=== PATIENT | female | born 1995 | race Caucasian/White ===

== ENCOUNTER → 2017-11-17 | Outpatient (REF) | payer OTHER ==
[2017-11-17 19:28] LABS: PLATELET COUNT, AUTOMATED 280 K/uL (150-450)
== END ==
PROVIDERS: ATTEND Nurse Practitioner Family
DX: R07.9 Chest pain, unspecified (principal)
CPT/HCPCS: 82040; 82247; 82310; 82374; 82435; 82565; 82947; 84075; 84132; 84155; 84295; 84450; 84460; 84484; 84520; 85025

== ENCOUNTER 2018-01-22 11:39 | Emergency (ER) | payer OTHER ==
--- NOTE | 2018-01-22 11:47 | ER Report ---
History and Physical Time Seen By MD: 11:46 Hx. of Stated Complaint: PT WOKE UP WITH CP AT 0635 THIS MORNING. IT STARTED LAST NIGHT BUT SHE WENT TO BED TO SLEEP ITY OFF. WENT TO URGENT TODAY, THEY SENT HER TO ER WITH LEAD CHANGES ON EKG HPI/ROS CHIEF COMPLAINT: Chest pain and shortness of breath HISTORY OF PRESENT ILLNESS: This is a 23-year-old female who presents to the emergency department for chest pain and shortness of breath. The patient was seen and evaluated at urgent care in November for some chest pain, exertional- type while running, EKG then showing a normal sinus rhythm. Was told that this was more muscular than cardiac, patient states that she been having this pain intermittently since then, significantly more intense since last Monday when she was running she had severe chest pain. Today she woke up around 6:30 with significant increase in chest pain, did seem to cause some increased shortness of breath. This pain did start last night but did intensify throughout the morning today. Patient did go running yesterday. Patient also does smoke arch quantities of marijuana, she states that when she does this she inhales pretty forcefully and deeply. Patient then went to urgent care today, they did a repeat EKG and there were some notable EKG changes, specifically V2, V3, with inverted T waves in lead 1 and flattened the T waves in lead 2. No nausea or vomiting. No headaches. No other complaints. REVIEW OF SYSTEMS: Constitutional: No fever, no chills. Eyes: No discharge. ENT: No sore throat. Cardiovascular: As above. Respiratory: As above. Gastrointestinal: No abdominal pain, no vomiting. Genitourinary: No hematuria. Musculoskeletal: No back pain. Skin: No rashes. Neurological: No headache. Allergies: Coded Allergies: No Known Drug Allergies (Unverified , 01/22/18) Home Meds No Active Prescriptions or Reported Meds Past Medical/Surgical History The patient has a past medical and surgical history of significant amount of marijuana use, tonsillectomy. Reviewed Nurses Notes: Yes Constitutional Vital Sign - Last 24 Hours 01/22/18 01/22/18 01/22/18 01/22/18 11:39 11:42 11:42 11:54 Temp 97.8 Pulse ??? 80 103 Resp 12 23 B/P (MAP) 142/96 142/96 (111) Pulse Ox 97 99 O2 Delivery Room Air 01/22/18 01/22/18 01/22/18 01/22/18 12:00 12:09 12:24 12:30 Pulse 79 81 Resp 35 22 B/P (MAP) 122/86 (98) 130/111 (117) Pulse Ox 98 98 Physical Exam General Appearance: The patient is alert, has no immediate need for airway protection and no signs of toxicity. Eyes: Pupils equal and round no pallor or injection. ENT, Mouth: Mucous membranes are moist. Respiratory: There are no retractions, lungs are clear to auscultation. Cardiovascular: Regular rate and rhythm, no murmurs, clicks or rubs. Gastrointestinal: Abdomen is soft and non tender, no masses, bowel sounds nor mal. Neurological: Alert and oriented 4. Moving all extremities. Following all commands. No focal neuro deficits. Skin: Warm and dry, no rashes. Musculoskeletal: Neck is supple non tender. Extremities are nontender, nonswollen and have full range of motion. DIFFERENTIAL DIAGNOSIS: After history and physical exam differential diagnosis was considered for chest pain including but not limited to myocardial ischemia, pericarditis pulmonary embolus, chest wall pain, pleural inflammation and pulmonary infectious causes. Medical Decision Making Data Points Result Diagram: 01/22/18 1153 01/22/18 1153 Laboratory Hematology Test 01/22/18 11:53 Red Blood Count 5.18 M/uL (4.17-5.56) Mean Corpuscular Volume 89.1 fL (80.0-96.0) Mean Corpuscular Hemoglobin 30.6 pg (26.0-33.0) Mean Corpuscular Hemoglobin Concent 34.3 g/dL (32.0-36.0) Red Cell Distribution Width 13.1 % (11.5-14.5) Mean Platelet Volume 7.2 fL (7.2-11.1) Neutrophils (%) (Auto) 67.0 % (39.4-72.5) Lymphocytes (%) (Auto) 26.6 % (17.6-49.6) Monocytes (%) (Auto) 5.4 % (4.1-12.4) Eosinophils (%) (Auto) 0.4 % (0.4-6.7) Basophils (%) (Auto) 0.6 % (0.3-1.4) Nucleated RBC Relative Count (auto) 0.0 /100WBC Neutrophils # (Auto) 4.8 K/uL (2.0-7.4) Lymphocytes # (Auto) 1.9 K/uL (1.3-3.6) Monocytes # (Auto) 0.4 K/uL (0.3-1.0) Eosinophils # (Auto) 0.0 K/uL (0.0-0.5) Basophils # (Auto) 0.0 K/uL (0.0-0.1) Nucleated RBC Absolute Count (auto) 0.00 K/uL D-Dimer Quantitative (PE/DVT) 0.28 ug/ml (0-0.50) Sodium Level 140 mmol/L (137-145) Potassium Level 3.7 mmol/L (3.5-5.0) Chloride Level 107 mmol/L (98-107) Carbon Dioxide Level 21 mmol/L (22-31) Blood Urea Nitrogen 10 mg/dl (7-18) Creatinine 0.70 mg/dl (0.52-1.04) Glomerular Filtration Rate Calc > 60.0 Random Glucose 112 mg/dl (75-110) Calcium Level 9.7 mg/dl (8.4-10.2) Total Bilirubin 1.1 mg/dl (0.2-1.3) Aspartate Amino Transf (AST/SGOT) 55 U/L (0-35) Alanine Aminotransferase (ALT/SGPT) 47 U/L (0-56) Alkaline Phosphatase 59 U/L (0-126) Troponin I < 0.012 ng/ml Total Protein 8.0 g/dl (6.3-8.2) Albumin 4.9 g/dl (3.5-5.0) Chemistry Test 01/22/18 11:53 White Blood Count 7.2 k/uL (4.5-11.0) Red Blood Count 5.18 M/uL (4.17-5.56) Hemoglobin 15.8 g/dL (12.0-16.0) Hematocrit 46.1 % (34.0-47.0) Mean Corpuscular Volume 89.1 fL (80.0-96.0) Mean Corpuscular Hemoglobin 30.6 pg (26.0-33.0) Mean Corpuscular Hemoglobin Concent 34.3 g/dL (32.0-36.0) Red Cell Distribution Width 13.1 % (11.5-14.5) Platelet Count 290 K/uL (150-450) Mean Platelet Volume 7.2 fL (7.2-11.1) Neutrophils (%) (Auto) 67.0 % (39.4-72.5) Lymphocytes (%) (Auto) 26.6 % (17.6-49.6) Monocytes (%) (Auto) 5.4 % (4.1-12.4) Eosinophils (%) (Auto) 0.4 % (0.4-6.7) Basophils (%) (Auto) 0.6 % (0.3-1.4) Nucleated RBC Relative Count (auto) 0.0 /100WBC Neutrophils # (Auto) 4.8 K/uL (2.0-7.4) Lymphocytes # (Auto) 1.9 K/uL (1.3-3.6) Monocytes # (Auto) 0.4 K/uL (0.3-1.0) Eosinophils # (Auto) 0.0 K/uL (0.0-0.5) Basophils # (Auto) 0.0 K/uL (0.0-0.1) Nucleated RBC Absolute Count (auto) 0.00 K/uL D-Dimer Quantitative (PE/DVT) 0.28 ug/ml (0-0.50) Glomerular Filtration Rate Calc > 60.0 Calcium Level 9.7 mg/dl (8.4-10.2) Total Bilirubin 1.1 mg/dl (0.2-1.3) Aspartate Amino Transf (AST/SGOT) 55 U/L (0-35) Alanine Aminotransferase (ALT/SGPT) 47 U/L (0-56) Alkaline Phosphatase 59 U/L (0-126) Troponin I < 0.012 ng/ml Total Protein 8.0 g/dl (6.3-8.2) Albumin 4.9 g/dl (3.5-5.0) Coagulation Test 01/22/18 11:53 D-Dimer Quantitative (PE/DVT) 0.28 ug/ml EKG/Imaging EKG Interpretation 12 lead EKG: Time of EKG 1203. Rhythm: Normal sinus rhythm, ventricular rate 77 bpm. [place]: Right. QRS: normal ST segments: No ST depression or elevation identified, flattened T-wave in V2. ED Course/Re-evaluation Clinical Indication for ER IV: Hydration, IV Access ED Course The patient was admitted to room. Attempts were obtained. Differential diagnoses were considered. IV was started. A CBC, CMP, troponin and d-dimer were obtained. Lab studies unremarkable. Negative troponin, negative d-dimer. A 1 L normal saline bolus was given. Patient had a negative two-view chest x-ray at urgent care. I did visualize the images myself. The EKG changes that were noted on the EKG from urgent care were different from our EKG obtained in the ER. The EKG today in the ER is similar to the November EKG the patient had at urgent care. I do wonder if the EKG from urgent care today was not placed properly however the patient was having chest pain today no chest pain while in the ER. No shortness of breath while in the ER. I did review the laboratory studies, EKG with the patient. I did tell her that she probably should cut back or stop smoking marijuana altogether as this could cause some potential cardiac irritability as well as pulmonary problems. The patient expressed understanding and was discharged home. I also recommended that she follows up with [facility] this week for reevaluation. Return to the ER sooner if she has any recurrent chest pain. Patient expressed understanding, was in agreement with this plan of care and discharged home. Patient also received a 325 mg aspirin at urgent care. Decision to Disposition Date: Jan 22, 2018 Decision to Disposition Time: 12:41 Depart Departure Latest Vital Signs Vital Signs Date Time Temp Pulse Resp B/P (MAP) Pulse Ox O2 Delivery O2 Flow Rate FiO2 01/22/18 12:30 130/111 (117) 01/22/18 12:24 81 22 98 01/22/18 11:42 97.8 Room Air Impression: Primary Impression: Chest pain of unknown etiology Additional Impression: Acute electrocardiogram changes Condition: Improved Disposition: HOME OR SELF-CARE Referrals: [facility] 5 Days CARDIOLOGY New Scripts No Active Prescriptions or Reported Meds Patient Instructions: Chest Pain (ED), Electrocardiogram (GEN) Additional Instructions: Your blood work, most recent EKG from the emergency department do not show any indication of cardiac infarct or injury. The EKG from urgent care did show different tracings from the November EKG, I alvarez hansenld recommend not smoking marijuana from this point forward as this could be causing the changes in your EKG as well as the chest pain. Continue drinking plenty of water. Get plenty of rest. [facility]-up with [facility] this [facility] for reevaluation. I would also recommend if this is recurrent chest pain I would recommend following up with a air traffic control operator. Please return to the emergency department for any other concerns or worsening symptoms. Problem Qualifiers BASSAM GLORIA MAINFRAME ARCHITECT-BC Jan 22, 2018 11:47
[2018-01-22] MEDS ORDERED: NS(*) 0.9% 1000 ML BAG 1,000 ML IV ONE (11:57)
[2018-01-22 12:04] LABS: PLATELET COUNT, AUTOMATED 290 K/uL (150-450)
--- NOTE | 2018-01-22 12:08 | EKG ---
FACILITY: [facility] PATIENT NAME: ANNA PINO : [id number] MR: [id number] V: [id number] EXAM DATE: ORDERING PHYSICIAN: BASSAM GLORIA TECHNOLOGIST: CHIARA Louis Reason : CP Blood Pressure : / mmHG Vent. Rate : 077 BPM Atrial Rate : 077 BPM P-R Int : 134 ms QRS Dur : 088 ms QT Int : 400 ms P-R-T Axes : 073 106 076 degrees QTc Int : 452 ms Normal sinus rhythm Rightward axis Borderline ECG No previous ECGs available Confirmed by BRICE VICENTE ([id number] on 01/23/2018 6:35:34 AM Referred By: SPENCER Confirmed By:BRICE VICENTE
[2018-01-22 12:30] VITALS: BP 130/111
== END 2018-01-22 12:56 | disposition home or self-care (01) ==
LOC: ER 11:47
DX: R07.9 Chest pain, unspecified (principal)
CPT/HCPCS: 84484; 85025; 85379; 93005; 96360; 99283; J7030; 82040; 82247; 82310; 82374; 82435; 82565; 82947; 84075; 84132; 84155; 84295; 84450; 84460; 84520